=== PATIENT | female | born 1955 | race Hispanic/Latino ===

== ENCOUNTER → 2024-05-27 15:05 | Outpatient (REF) | payer MEDICARE, OTHER, SELFPAY | LOC: RAD 15:05 | PROVIDERS: ATTENDING PHYSICIAN Internal Medicine Rheumatology; FAMILY PHYSICIAN Family Medicine | DX: M25.562 Pain in left knee (principal) | CPT/HCPCS: 73560 ==

== ENCOUNTER → 2024-07-12 13:54 | Outpatient (REF) | payer MEDICARE, OTHER, SELFPAY | LOC: RAD 13:54 | PROVIDERS: ATTENDING PHYSICIAN Family Medicine | DX: M54.2 Cervicalgia (principal); M25.512 Pain in left shoulder | CPT/HCPCS: 72050; 73030 ==

== ENCOUNTER → 2025-04-10 08:42 | Outpatient (REF) | payer MEDICARE, OTHER, SELFPAY | LOC: RAD 08:42 | PROVIDERS: ATTENDING PHYSICIAN Internal Medicine Rheumatology; FAMILY PHYSICIAN Family Medicine; REFERRING PHYSICIAN Student in an Organized Health Care Education/Training Program | DX: M85.89 Other specified disorders of bone density and structure, multiple sites (principal) | CPT/HCPCS: 77080 ==